=== PATIENT | male | born 1960 | race Caucasian/White ===

== ENCOUNTER 2019-06-05 13:29 | Emergency (ER) | payer OTHER ==
[~2019-06-05] VITALS: Ht 175.3 cm; Wt 108.9 kg
[~2019-06-05 13:29] MED LIST: ASPIRIN81 MG PO; DOXAZOSIN MESYLA2 MG PO; LOZOL 2.5MG2.5 MG PO; METFORMIN HCL500 MG; NEXIUM40 MG PO; Z DOXEPIN HCL; Z.0.DIOVAN320 MG; Z.0.TOPROL XL100 MG PO; [UNRECOGNIZED DRUG - OTHER]
--- OUTSIDE RECORDS SUMMARY | 2019-06-05 13:32 | XMS REPORT | Continuity of Care Document ---
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 Cardio Study Active Diagnosis 06/17/2014 [facility] LBBB (left bundle branch block) Active Diagnosis 01/20/2019 [facility] HTN (hypertension), benign Active Diagnosis 01/20/2019 [facility] Abnormal electrocardiogram Active Diagnosis 01/20/2019 [facility] Other secondary hypertension, benign Active Diagnosis 01/20/2019 [facility] Shortness of breath Active Diagnosis 01/09/2016 [facility] Medications Medication Details Route Status Patient Instructions Ordering Provider Order Date Source Pravachol 2 tablets Orally Active 10 MG Orally Once a day [facility] Iron Unknown Orally Active 25 MG Orally [facility] Vitamin D2 Unknown Orally Active 400 UNIT Orally [facility] Nexium as directed Orally Active 40 MG Orally once a day [facility] Asprin 1 daily NA Active 81 once a day [facility] Metoprolol Tartrate 1 tablet Orally Active 50 MG Orally twice a day [facility] Indapamide 1 tablet every morning Orally Active 2.5 MG Orally Once a day [facility] B complex 1 tab Oral Active Oral [facility] Diovan 1 tablet Orally Active 320 MG Orally Once a day [facility] Nisoldipine ER 1 tablet Orally Active 8.5 MG Orally Once a day [facility] Multivitamin not defined Orally Active Orally [facility] Vitamin D3 2 tablets Orally Active 400 UNIT Orally Once a day [facility] Diovan 1/2 tablet Orally Active 320 MG Orally Once a day [facility] Asprin 1 daily NA Active 81 once a day [facility] B complex 1 tab Oral Active Oral [facility] Indapamide 1/2 tablet every morning Orally Active 1.25 MG Orally Once a day [facility] Vitamin D2 not defined Orally Active 400 UNIT Orally [facility] Diovan 1/2 tablet Orally Active 320 MG Orally Once a day [facility] Indapamide 1/2 tablet every morning Orally Active 2.5 MG Orally Once a day [facility] Allergies, Adverse Reactions, Alerts Substance Category Reaction Severity Reaction type Status Date Reported Comments Source N.K.D.A. Adverse Reaction Info Not Available Adverse Reaction Active 06/08/2014 [facility] Norvasc Adverse Reaction Info Not Available Adverse Reaction Active 01/18/2019 [facility] Immunizations No Data Provided for This Section Results No Data Provided for This Section Pathology Reports No Data Provided for This Section Diagnostic Reports No Data Provided for This Section Consultation Notes No Data Provided for This Section Discharge Summaries No Data Provided for This Section History and Physicals No Data Provided for This Section Vital Signs Vital Sign Value Date Comments Source Weight 252 01/18/2019 [facility] Heart Rate 80 01/18/2019 [facility] Diastolic (mm Hg) 86 01/18/2019 [facility] Systolic (mm Hg) 132 01/18/2019 [facility] Weight 260 01/12/2019 [facility] Heart Rate 54 01/12/2019 [facility] Diastolic (mm Hg) 80 01/12/2019 [facility] Systolic (mm Hg) 140 01/12/2019 [facility] Weight 223 01/04/2016 [facility] Heart Rate 60 01/04/2016 [facility] Diastolic (mm Hg) 70 01/04/2016 [facility] Systolic (mm Hg) 130 01/04/2016 [facility] Weight 219 06/20/2015 [facility] Heart Rate 52 06/20/2015 [facility] Diastolic (mm Hg) 82 06/20/2015 [facility] Systolic (mm Hg) 144 06/20/2015 [facility] Weight 276 06/08/2014 [facility] Heart Rate 58 06/08/2014 [facility] Diastolic (mm Hg) 90 06/08/2014 [facility] Systolic (mm Hg) 138 06/08/2014 [facility] Weight 267 05/24/2014 [facility] Heart Rate 70 05/24/2014 [facility] Diastolic (mm Hg) 64 05/24/2014 [facility] Systolic (mm Hg) 122 05/24/2014 [facility] Weight 290 03/30/2014 [facility] Heart Rate 48 03/30/2014 [facility] Diastolic (mm Hg) 62 03/30/2014 [facility] Systolic (mm Hg) 122 03/30/2014 [facility] Encounters Location Location Details Encounter Type Encounter Number Reason For Visit Attending Provider ADM Date DC Date Status Source [facility] ROUT[facility] CHECK UP [id number] 03/30/2014 03/30/2014 [facility] ROUTINE CHECK UP [id number] 03/30/2014 03/30/2014 [facility] ROUTINE CHECK UP [id number] 03/30/2014 03/30/2014 [facility] ROUTINE CHECK UP [id number] 03/30/2014 03/30/2014 [facility] ROUTINE CHECK UP [id number] 03/30/2014 03/30/2014 [facility] ROUTINE CHECK UP [id number] 03/30/2014 03/30/2014 [facility] ROUTINE CHECK UP [id number] 03/30/2014 03/30/2014 [facility] ROUTINE CHECK UP [id number] 03/30/2014 03/30/2014 [facility] ECHO [id number] 05/19/2014 05/19/2014 [facility] E[facility] [id number] 05/19/2014 05/19/2014 [facility] E[facility] [id number] 05/19/2014 05/19/2014 [facility] ECHO [id number] 05/19/2014 05/19/2014 [facility] ECHO [id number] 05/19/2014 05/19/2014 [facility] ECHO [id number] 05/19/2014 05/19/2014 [facility] ECHO [id number] 05/19/2014 05/19/2014 [facility] f/u ECHO [id number] 05/24/2014 05/24/2014 [facility] f/u ECHO [id number] 05/24/2014 05/24/2014 [facility] f/u ECHO [id number] 05/24/2014 05/24/2014 [facility] [place] [facility] f/u ECHO [id number] 05/24/2014 05/24/2014 [facility] f/u ECHO [id number] 05/24/2014 05/24/2014 [facility] [place] [facility] f/u ECHO [id number] 05/24/2014 05/24/2014 [facility] [facility] f/u ECHO [id number] 05/24/2014 05/24/2014 [facility] BOW[facility] GENE NST [id number] 06/02/2014 06/02/2014 [facility] [place] [facility] GENE NST [id number] 06/02/2014 06/02/2014 [facility] GENE NST [id number] 06/02/2014 06/02/2014 [facility] [place] [facility] GENE NST [id number] 06/02/2014 06/02/2014 [facility] GENE NST [id number] 06/02/2014 06/02/2014 [facility] GENE NST [id number] 06/02/2014 06/02/2014 [facility] [place] [facility] GENE NST [id number] 06/02/2014 06/02/2014 [facility] [place] [facility] F/U GENE NST [id number] 06/08/2014 06/08/2014 [facility] [place] [facility] F/U GENE NST [id number] 06/08/2014 06/08/2014 [facility] [place] [facility] F/U GENE NST [id number] 06/08/2014 06/08/2014 [facility] [place] [facility] F/U GENE NST [id number] 06/08/2014 06/08/2014 [facility] [place] [facility] F/U GENE NST [id number] 06/08/2014 06/08/2014 [facility] [place] [facility] F/U GENE NST [id number] 06/08/2014 06/08/2014 [facility] F/U GENE NST [id number] 06/08/2014 06/08/2014 [facility] F.U [id number] 08/31/2014 08/31/2014 [facility] F.U [id number] 08/31/2014 08/31/2014 [facility] [place] [facility] F.U [id number] 08/31/2014 08/31/2014 [facility] B[facility] NST [id number] 12/13/2014 12/13/2014 [facility] NST [id number] 12/13/2014 12/13/2014 [facility] BOWERS NST [id number] 12/13/2014 12/13/2014 [facility] [facility] ECHO [id number] 12/13/2014 12/13/2014 [facility] ECHO [id number] 12/13/2014 12/13/2014 [facility] ECHO [id number] 12/13/2014 12/13/2014 [facility] F.U TESTING [id number] 12/15/2014 12/15/2014 [facility] PA F.U TESTING [id number] 12/15/2014 12/15/2014 [facility] BOW[facility] F.U TESTING [id number] 12/15/2014 12/15/2014 [facility] [place] [facility] PA 6 MO F.U [id number] 06/20/2015 06/20/2015 [facility] [place] BOWERS 6 MO F.U [id number] 06/20/2015 06/20/2015 [facility] [place] BOWERS 6 MO F.U [id number] 06/20/2015 06/20/2015 [facility] [facility] ECHO [id number] 12/15/2015 12/15/2015 [facility] ECHO [id number] 12/15/2015 12/15/2015 [facility] BOW[facility] F/U TESTING [id number] 01/04/2016 01/04/2016 [facility] Procedures No Data Provided for This Section Assessment and Plan No Data Provided for This Section Plan of Care No Data Provided for This Section Social History Social History Date Source Social History ElementQualifiersDate Reported Diet: no. Are you on a special diet? No January 04, 2016 Caffeine: yes. Do you drink caffeine? Yes, How much a day? couple of times a week, What type? Tea January 04, 2016 Exercise: yes. Do you exercise? Yes, What type of exercise? Walking, Biking January 04, 2016 Smoking: . Are you a: Never smoker January 04, 2016 Alcohol: socially. Do you drink alcohol? Yes, How often? Socially January 04, 2016 01/04/2016 [facility] Family History Value Date Source QualifierDescriptionCommentDate Reported Other: hypertension Jun 08, 2014 Father alive high blood pressure, stroke Jun 08, 2014 06/17/2014 [facility] QualifierDescriptionCommentDate Reported Other: hypertension Jun 08, 2014 Father alive high blood pressure, stroke Jun 08, 2014 06/17/2014 [facility] QualifierDescriptionCommentDate Reported Other: hypertension Jun 08, 2014 Father alive high blood pressure, stroke Jun 08, 2014 06/17/2014 [facility] QualifierDescriptionCommentDate Reported Other: hypertension Jun 08, 2014 Father alive high blood pressure, stroke Jun 08, 2014 06/17/2014 [facility] Advance Directives No Data Provided for This Section Functional Status No Data Provided for This Section
--- OUTSIDE RECORDS SUMMARY | 2019-06-05 13:33 | XMS REPORT ---
Author Author [facility] Address Unknown Phone Unavailable Care Team Providers Care Retort Feeder Ground Bone Name Role Phone Unavailable Unavailable Payers Payer Name Policy Type Policy Number Effective Date Expiration Date Problems This patient has no known problems. Allergies, Adverse Reactions, Alerts Allergy Name Allergy Type Status Severity Reaction(s) Onset Date Inactive Date Treating Clinician Comments No Known Allergies DA Active U 2019-01-21 00:00:00 Medications This patient has no known medications. Results Test Description Test Time Test Comments Text Results Atomic Results Result Comments CBC W/AUTO DIFF 2019-01-21 11:12:00 WHITE BLOOD CELL (test code=WBC) 5.4 K/mm3 3.5-11.0 RED BLOOD CELL (test code=RBC) 6.20 M/mm3 4.70-6.10 HEMOGLOBIN (test code=HGB) 12.9 G/DL 12.3-15.9 HEMATOCRIT (test code=HCT) 40.1 % 35.8-46.7 MEAN CELL VOLUME (test code=MCV) 64.7 Fl 86.3-98.9 MEAN CELL HGB (test code=MCH) 20.8 pg 28.9-34.4 MEAN CELL HGB CONCETRATION (test code=MCHC) 32.2 G/DL 32.1-34.5 RED CELL DISTRIBUTION WIDTH (test code=RDW) 18.7 SD 11.5-14.5 PLATELET COUNT (test code=PLT) 215.0 K/mm3 150-450 MEAN PLATELET VOLUME (test code=MPV) 10.90 fL 7.0-9.6 NEUTROPHIL % (test code=NT%) 67.1 % 40-76 LYMPHOCYTE % (test code=LY%) 18.2 % 20.5-51.1 MONOCYTE % (test code=MO%) 10.1 % 1.7-9.3 EOSINOPHIL % (test code=EO%) 4.0 % 0.0-6.0 BASOPHIL % (test code=BA%) 0.6 % 0.0-2.0 NEUTROPHIL # (test code=NT#) 3.65 K/mm3 1.8-7.6 LYMPHOCYTE # (test code=LY#) 1.0 K/mm3 0.6-3.0 MONOCYTE # (test code=MO#) 0.6 K/mm3 0.2-1.5 EOSINOPHIL # (test code=EO#) 0.2 K/mm3 0.0-0.4 BASOPHIL # (test code=BA#) 0.0 K/mm3 0.0-0.2 MANUAL DIFF REQUIRED (test code=MDIFF) NO DIFF/SCN CRITERIA BASIC METABOLIC [id number] 11:04:00* Test Item Value Reference Range Comments SODIUM (test code=NA) 140 mmol/L 134-147 POTASSIUM (test code=K) 4.5 mmol/L 3.4-5.0 CHLORIDE (test code=CL) 105 mmol/L 100-108 CARBON DIOXIDE (test code=CO2) 32 mmol/L 21-32 ANION GAP (test code=GAP) 3.0 GAP calc 4.0-15.0 GLUCOSE (test code=GLU) 102 MG/DL 70-110 BLOOD UREA NITROGEN (test code=BUN) 22 MG/DL 7-18 GLOMERULAR FILTRATION RATE (test code=GFR) >=60 max estimate estGFR >60 CREATININE (test code=CREAT) 1.0 MG/DL 0.8-1.3 CALCIUM (test code=CA) 8.9 MG/DL 8.5-10.1 CBC W/AUTO [id number] 10:51:00* Test Item Value Reference Range Comments WHITE BLOOD CELL (test code=WBC) 5.4 K/mm3 3.5-11.0 RED BLOOD CELL (test code=RBC) 6.20 M/mm3 4.70-6.10 HEMOGLOBIN (test code=HGB) 12.9 G/DL 12.3-15.9 HEMATOCRIT (test code=HCT) 40.1 % 35.8-46.7 MEAN CELL VOLUME (test code=MCV) 64.7 Fl 86.3-98.9 MEAN CELL HGB (test code=MCH) 20.8 pg 28.9-34.4 MEAN CELL HGB CONCETRATION (test code=MCHC) 32.2 G/DL 32.1-34.5 RED CELL DISTRIBUTION WIDTH (test code=RDW) 18.7 SD 11.5-14.5 PLATELET COUNT (test code=PLT) 215.0 K/mm3 150-450 MEAN PLATELET VOLUME (test code=MPV) 10.90 fL 7.0-9.6 NEUTROPHIL % (test code=NT%) % 40-76 LYMPHOCYTE % (test code=LY%) % 20.5-51.1 MONOCYTE % (test code=MO%) % 1.7-9.3 EOSINOPHIL % (test code=EO%) % 0.0-6.0 BASOPHIL % (test code=BA%) % 0.0-2.0 NEUTROPHIL # (test code=NT#) K/mm3 1.8-7.6 LYMPHOCYTE # (test code=LY#) K/mm3 0.6-3.0 MONOCYTE # (test code=MO#) K/mm3 0.2-1.5 EOSINOPHIL # (test code=EO#) K/mm3 0.0-0.4 BASOPHIL # (test code=BA#) K/mm3 0.0-0.2 MANUAL DIFF REQUIRED (test code=MDIFF) DIFF/SCN CRITERIA
--- OUTSIDE RECORDS SUMMARY | 2019-06-05 13:33 | XMS REPORT ---
Author Author Zahida Jarquin Organization [employer] Address Unknown Phone Unavailable Care Team Providers Care Ux Consultant Name Role Phone Zahida Jarquin CP Unavailable Encounters Encounter Location Date [facility] Jun 02, 2014 F/U [facility] Jun 08, 2014 ROUTINE CHECK UP [facility] March 30, 2014 ECHO [facility] May 19, 2014 f/u ECHO [facility] May 24, 2014 Problems Problem Type Condition ICD-9 Code Onset Dates Condition Status Assessment Other secondary hypertension, benign 405.19 Active Assessment Other acute and subacute form of ischemic heart disease 411.89 Active Problem Essential hypertension, benign 401.1 Active Assessment Abnormal EKG 794.31 Active Problem Diabetes mellitus without mention of complication, type II or unspecified type, not stated as uncontrolled 250.00 Active Assessment Other malaise and fatigue 780.79 Active Assessment Sinoatrial node dysfunction 427.81 Active Assessment Shortness of breath 786.05 Active Assessment Diabetes mellitus without mention of complication, type II or unspecified type, not stated as uncontrolled 250.00 Active Social History Social History Element Qualifiers Date Reported Diet: no. Are you on a special diet? No Jun 08, 2014 Caffeine: yes. Do you drink caffeine? Yes, How much a day? couple of times a week, What type? Tea Jun 08, 2014 Exercise: yes. Do you exercise? Yes, What type of exercise? Walking, Biking Jun 08, 2014 Smoking: . Are you a: Never smoker Jun 08, 2014 Alcohol: socially. Do you drink alcohol? Yes, How often? Socially Jun 08, 2014 Family history Qualifier Description Comment Date Reported Other: hypertension Jun 08, 2014 Father alive high blood pressure, stroke Jun 08, 2014 Summary Purpose [employer] Submission
--- OUTSIDE RECORDS SUMMARY | 2019-06-05 13:33 | XMS REPORT ---
Author Author Zahida Jarquin Organization [employer] Address Unknown Phone Unavailable Care Team Providers Care Inside Contractor Sales Name Role Phone Zahida Jarquin CP Unavailable Allergies, Adverse Reactions, Alerts Substance Reaction Event Type Norvasc Info Not Available Drug Allergy Problems Problem Type Condition Code Onset Dates Condition Status Problem Diabetes mellitus without mention of complication, type II or unspecified type, not stated as uncontrolled 250.00 Active Problem Essential hypertension, benign 401.1 Active Problem LBBB (left bundle branch block) I44.7 Active Assessment Other secondary hypertension, benign I15.9 Active Assessment LBBB (left bundle branch block) I44.7 Active Assessment Abnormal electrocardiogram R94.31 Active Medications Medication Code System Code Instructions Start Date End Date Status Dosage Vitamin D3 [facility] 06823211889 400 UNIT Orally Once a day Active 2 tablets Vitamin D2 [facility] 10975760640 400 UNIT Orally Active not defined Asprin NDC 0 81 once a day Active 1 daily B complex NDC 0 Oral Active 1 tab Indapamide [facility] 51705265802 1.25 MG Orally Once a day Active 1/2 tablet every morning Nisoldipine ER [place] 57893640401 8.5 MG Orally Once a day Active 1 tablet Multivitamin [facility] [address] Orally Active not defined Diovan [facility] [address]-02 320 MG Orally Once a day Active 1/2 tablet Vital Signs Date/Time: January 12, 2019 BMI 50.77 Index Weight 260 lbs Height 5'9 in Cardiac Monitoring Heart Rate 54 /min Blood Pressure Diastolic 80 mm Hg Blood Pressure Systolic 140 mm Hg Results No Known Results Summary Purpose [employer] Submission
--- OUTSIDE RECORDS SUMMARY | 2019-06-05 13:33 | XMS REPORT ---
Author Author Zahida Jarquin Organization [employer] Address Unknown Phone Unavailable Care Team Providers Care Control Room Supervisor Name Role Phone Zahida Jarquin CP Unavailable [...] Assessment Other secondary hypertension, benign 405.19 Active Problem Essential hypertension, benign 401.1 Active [...]
--- OUTSIDE RECORDS SUMMARY | 2019-06-05 13:33 | XMS REPORT ---
Author Author Zahida Jarquin Organization [employer] Address Unknown Phone Unavailable Care Team Providers Care Lead Customer Service Representative Name Role Phone Zahida Jarquin CP Unavailable Allergies, Adverse Reactions, Alerts Substance Reaction Event Type Norvasc Info Not Available Drug Allergy Problems Problem Type Condition Code Onset Dates Condition Status Assessment LBBB (left bundle branch block) I44.7 Active Assessment HTN (hypertension), benign I10 Active Problem LBBB (left bundle branch block) I44.7 Active Problem Diabetes mellitus without mention of complication, type II or unspecified type, not stated as uncontrolled 250.00 Active Problem HTN (hypertension), benign I10 Active Assessment Abnormal electrocardiogram R94.31 Active Assessment Other secondary hypertension, benign I15.9 Active Problem Essential hypertension, benign 401.1 Active Medications Medication Code System Code Instructions Start Date End Date Status Dosage B complex NDC 0 Oral Active 1 tab Vitamin D3 NDC 45984885906 400 UNIT Orally Once a day Active 2 tablets Diovan NDC 23017299061 320 MG Orally Once a day Active 1/2 [place] [address] Orally Active not defined Nisoldipine ER NDC 03972201249 8.5 MG Orally Once a day Active 1 tablet Indapamide NDC 72501116010 1.25 MG Orally Once a day Active 1/2 tablet every morning Asprin NDC 0 81 once a day Active 1 daily Vital Signs Date/Time: January 18, 2019 BMI 49.21 Index Weight 252 lbs Height 5'9 in Cardiac Monitoring Heart Rate 80 /min Blood Pressure Diastolic 86 mm Hg Blood Pressure Systolic 132 mm Hg Results No Known Results Summary Purpose [employer] Submission
--- OUTSIDE RECORDS SUMMARY | 2019-06-05 13:33 | XMS REPORT ---
Author Author Zahida Jarquin Organization [employer] Address Unknown Phone Unavailable Care Team Providers Care Neurology Technologist Name Role Phone Zahida Jarquin CP Unavailable Encounters Encounter Location Date GENE [facility] Jun 02, 2014 F/U [facility] [place] [facility] Jun 08, 2014 F.U [facility] Aug 31, 2014 NST [facility] December 13, 2014 ROUTINE CHECK UP [facility] March 30, 2014 ECHO [facility] December 15, 2015 ECHO [facility] May 19, 2014 f/u ECHO [facility] May 24, 2014 6 MO F.U [facility] Jun 20, 2015 ECHO [facility] December 13, 2014 F.U TESTING [facility] December 15, 2014 Problems Problem Type Condition ICD-9 Code Onset Dates Condition Status Problem Essential hypertension, benign 401.1 Active Assessment Shortness of breath R06.02 Active Problem Diabetes mellitus without mention of complication, type II or unspecified type, not stated as uncontrolled 250.00 Active Assessment Abnormal electrocardiogram R94.31 Active Assessment Other secondary hypertension, benign I15.9 Active Social History Social History Element Qualifiers Date Reported Diet: no. Are you on a special diet? No Jun 20, 2015 Caffeine: yes. Do you drink caffeine? Yes, How much a day? couple of times a week, What type? Tea Jun 20, 2015 Exercise: yes. Do you exercise? Yes, What type of exercise? Walking, Biking Jun 20, 2015 Smoking: . Are you a: Never smoker Jun 20, 2015 Alcohol: socially. Do you drink alcohol? Yes, How often? Socially Jun 20, 2015 Summary Purpose [employer] Submission
--- OUTSIDE RECORDS SUMMARY | 2019-06-05 13:33 | XMS REPORT ---
Author Author Zahida Jarquin Organization [employer] Address Unknown Phone Unavailable Care Team Providers Care Wholesaler Name Role Phone Zahida Jarquin CP Unavailable Allergies, Adverse Reactions, Alerts Substance Reaction Event Type N.K.D.A. Info Not Available Non Drug Allergy Encounters Encounter Location Date [facility] Jun 02, 2014 F/U [facility] Jun 08, 2014 ROUTINE CHECK [facility] March 30, 2014 [facility] May 19, 2014 f/u [facility] [...] type, not stated as uncontrolled 250.00 Active Medications Medication Code System Code Instructions Start Date End Date Status Dosage Metoprolol Tartrate [facility] [address]-90 50 MG Orally twice a day Active 1 tablet Diovan [facility] [address]-07 320 MG Orally Once a day Active 1 tablet Asprin Unknown 0 81 once a day Active 1 daily Vitamin D2 [facility] [address] 400 UNIT Orally Active Unknown Indapamide [facility] [address]-66 2.5 MG Orally Once a day Active 1 tablet every morning B complex Unknown 0 Oral Active 1 tab Pravachol [facility] [address]-34 10 MG Orally Once a day Active 2 tablets Nexium [facility] [address]-35 40 MG Orally once a day Active as directed Iron [facility] [address]-73 25 MG Orally Active Unknown Social History Social History Element Qualifiers Date [...] high blood pressure, stroke Jun 08, 2014 Vital Signs Date/Time: May 24, 2014 Weight 267 lbs Cardiac Monitoring Heart Rate 70 /min Blood Pressure Diastolic 64 mm Hg Blood Pressure Systolic 122 mm Hg Summary Purpose [employer] Submission
--- OUTSIDE RECORDS SUMMARY | 2019-06-05 13:33 | XMS REPORT ---
Author Author Zahida Jarquin Organization [employer] Address Unknown Phone Unavailable Care Team Providers Care City Assessor Name Role Phone Zahida Jarquin CP Unavailable Allergies, Adverse Reactions, Alerts Substance Reaction Event Type N.K.D.A. Info Not Available Non Drug Allergy Encounters Encounter Location Date ROUTINE CHECK [facility] March 30, 2014 Problems Problem Type Condition ICD-9 Code Onset Dates Condition Status Assessment Sinoatrial node dysfunction 427.81 Active Problem Essential hypertension, benign 401.1 Active Assessment Abnormal EKG 794.31 Active Problem Diabetes mellitus without mention of complication, type II or unspecified type, not stated as uncontrolled 250.00 Active Assessment Essential hypertension, benign 401.1 Active Assessment Other malaise and fatigue 780.79 Active Assessment Shortness of breath 786.05 Active Assessment Diabetes mellitus without mention of complication, type II or unspecified type, not stated as uncontrolled 250.00 Active Medications Medication Code System Code Instructions Start Date End Date Status Dosage Pravachol [facility] [address]-93 10 MG Orally Once a day Active 2 tablets Iron [facility] [address]-08 25 MG Orally Active Unknown Vitamin D2 [facility] [address]871 400 UNIT Orally Active Unknown Nexium [facility] [address]-10 40 MG Orally once a day Active as directed Asprin Unknown 0 81 once a day Active 1 daily Metoprolol Tartrate [facility] [address]-67 50 MG Orally twice a day Active 1 tablet Indapamide [facility] [address]-64 2.5 MG Orally Once a day Active 1 tablet every morning B complex Unknown 0 Oral Active 1 tab Diovan [facility] [address]-92 320 MG Orally Once a day Active 1 tablet Social History Social History Element Qualifiers Date Reported Diet: no. Are you on a special diet? No March 30, 2014 Caffeine: yes. Do you drink caffeine? Yes, How much a day? 1 cup, What type? Tea March 30, 2014 Exercise: yes. Do you exercise? Yes, How often? Daily, What type of exercise? Walking March 30, 2014 Smoking: . Non smoker March 30, 2014 Alcohol: socially. Do you drink alcohol? Yes, How often? Socially March 30, 2014 Vital Signs Date/Time: March 30, 2014 Weight 290 lbs Cardiac Monitoring Heart Rate 48 /min Blood Pressure Diastolic 62 mm Hg Blood Pressure Systolic 122 mm Hg Summary Purpose [employer] Submission
--- OUTSIDE RECORDS SUMMARY | 2019-06-05 13:33 | XMS REPORT ---
Author Author Zahida Jarquin Organization [employer] Address Unknown Phone Unavailable Care Team Providers Care Strap Setter Name Role Phone Zahida Jarquin CP Unavailable [...] ICD-9 Code Onset Dates Condition Status Assessment Abn. Cardio Study 794.39 Active Assessment Other secondary hypertension, benign 405.19 Active [...] Instructions Start Date End Date Status Dosage Diovan [facility] [address]-56 320 MG Orally Once a day Active 1 tablet Iron [facility] [address]-46 25 MG Orally Active Unknown Metoprolol Tartrate [facility] [address]-96 50 MG Orally twice a day Active 1 tablet Nexium [facility] [address]-09 40 MG Orally once a day Active as directed Asprin Unknown 0 81 once a day Active 1 daily Vitamin D2 [facility] [address] 400 UNIT Orally Active Unknown B complex Unknown 0 Oral Active 1 tab Indapamide [facility] [address]-88 2.5 MG Orally Once a day Active 1 tablet every morning Pravachol [facility] [address]-58 10 MG Orally Once a day Active 2 tablets Social History Social History Element Qualifiers Date [...] stroke Jun 08, 2014 Vital Signs Date/Time: Jun 08, 2014 Weight 276 lbs Cardiac Monitoring Heart Rate 58 /min Blood Pressure Diastolic 90 mm Hg Blood Pressure Systolic 138 mm Hg Summary Purpose [employer] Submission
--- OUTSIDE RECORDS SUMMARY | 2019-06-05 13:33 | XMS REPORT ---
Author Author Zahida Jarquin Organization [employer] Address Unknown Phone Unavailable Care Team Providers Care Investments Manager Name Role Phone Zahida Jarquin CP Unavailable Allergies, Adverse Reactions, Alerts Substance Reaction Event Type Norvasc Info Not Available Drug Allergy Encounters Encounter Location Date [facility] Jun 02, 2014 F/U [facility] [place] [facility] Jun 08, 2014 [facility] Aug 31, 2014 [facility] December 13, 2014 ROUTINE CHECK UP [facility] March 30, 2014 [facility] May 19, 2014 f/u [facility] May 24, 2014 6 MO F.U [facility] Jun 20, 2015 [facility] December 13, 2014 F.U [facility] December 15, 2014 Problems Problem Type Condition ICD-9 Code Onset Dates Condition Status Problem Essential hypertension, benign 401.1 Active Assessment Shortness of breath 786.05 Active Problem Diabetes mellitus without mention of complication, type II or unspecified type, not stated as uncontrolled 250.00 Active Assessment Abnormal EKG 794.31 Active Assessment Other secondary hypertension, benign 405.19 Active Medications Medication Code System Code Instructions Start Date End Date Status [facility]osage [facility] [address] 400 UNIT Orally Active Unknown Diovan [facility] [address]-19 320 MG Orally Once a day Active 1 tablet [facility]apamide [facility] [address]-24 2.5 MG Orally Once a day Active 1/2 tablet every morning B complex Unknown 0 Oral Active 1 tab Asprin Unknown 0 81 once a day Active 1 daily Multivitamin [facility] [address] Orally Active Unknown Social History Social History [...] Yes, How often? Socially Jun 20, 2015 Vital Signs Date/Time: Jun 20, 2015 Weight 219 lbs Cardiac Monitoring Heart Rate 52 /min Blood Pressure Diastolic 82 mm Hg Blood Pressure Systolic 144 mm Hg Summary Purpose [employer] Submission
--- OUTSIDE RECORDS SUMMARY | 2019-06-05 13:33 | XMS REPORT ---
Author Author Zahida Jarquin Organization [employer] Address Unknown Phone Unavailable Care Team Providers Care Disease Case Manager Name Role Phone Zahida Jarquin CP Unavailable Allergies, Adverse Reactions, Alerts Substance Reaction Event Type Norvasc Info Not Available Drug Allergy Encounters Encounter Location Date [facility] Jun 02, 2014 F/U [facility] Jun 08, 2014 [facility] Aug 31, 2014 [facility] December 13, 2014 ROUTINE CHECK [facility] March 30, 2014 [facility] December 15, 2015 [facility] May 19, 2014 F/U [facility] January 04, 2016 f/u [facility] May 24, [...] Assessment Other secondary hypertension, benign I15.9 Active Medications Medication Code System Code Instructions Start Date End Date Status Dosage Multivitamin [facility] [address] Orally Active Unknown Asprin Unknown 0 81 once a day Active 1 daily B complex Unknown 0 Oral Active 1 tab Vitamin D2 [facility] 99695-[address]41 400 UNIT Orally Active Unknown Indapamide [facility] [address]-11 2.5 MG Orally Once a day Active 1/2 tablet every morning Diovan [facility] [address]-53 320 MG Orally Once a day Active [...] Yes, How often? Socially January 04, 2016 Vital Signs Date/Time: January 04, 2016 Weight 223 lbs Cardiac Monitoring Heart Rate 60 /min Blood Pressure Diastolic 70 mm Hg Blood Pressure Systolic 130 mm Hg Summary Purpose [employer] Submission
--- OUTSIDE RECORDS SUMMARY | 2019-06-05 13:33 | XMS REPORT ---
Author Author Zahida Jarquin Organization [employer] Address Unknown Phone Unavailable Care Team Providers Care Facility Worker Name Role Phone Zahida Jarquin CP Unavailable Allergies No Known Allergies Problems Problem Type Condition Code Onset Dates Condition Status Assessment LBBB (left bundle branch block) I44.7 Active Problem LBBB (left bundle branch block) I44.7 Active Problem Diabetes mellitus without mention of complication, type II or unspecified type, not stated as uncontrolled 250.00 Active Problem HTN (hypertension), benign I10 Active Assessment Abnormal electrocardiogram R94.31 Active Assessment Other secondary hypertension, benign I15.9 Active Problem Essential hypertension, benign 401.1 Active Medications Medication Code System Code Instructions Start Date End Date Status Dosage Nisoldipine ER [facility] 48721428363 8.5 MG Orally Once a day Active 1 tablet Multivitamin [facility] [address] Orally Active not defined Vitamin D3 ND 74482715552 400 UNIT Orally Once a day Active 2 tablets Diovan ND 96256240467 320 MG Orally Once a day Active 1/2 tablet Asprin NDC 0 81 once a day Active 1 daily B complex NDC 0 Oral Active 1 tab Indapamide ND 77179813335 1.25 MG Orally Once a day Active 1/2 tablet every morning Results No Known Results Summary Purpose [employer] Submission
--- NOTE | 2019-06-05 13:49 | NUR ---
RADIOLOGY AT BEDSIDE FOR XRAYS.
[2019-06-05] MEDS ORDERED: TRAMADOL HCL 50 MG TAB PO NR (14:30)
--- NOTE | 2019-06-05 14:33 | Diagnostic Imaging Report ---
Exam: Right ankle radiographs-3 views History: Status post fall, query fracture. Comparison: None. Findings: There is a comminuted, minimally displaced fracture of the distal fibula with intra-articular extension. There is soft tissue edema in the lateral ankle. Ankle mortise is preserved. The distal tibia is unremarkable. There is Achilles enthesopathy. Impression: Comminuted, minimally displaced fracture of the distal fibula. Signed by: Dr. Katia Coughlin MD on 06/05/2019 2:30 PM
== END 2019-06-05 14:57 | disposition home or self-care (01) ==
LOC: ER 13:29
DX: S82.424A Nondisplaced transverse fracture of shaft of right fibula, initial encounter for closed fracture (principal); X50.1XXA Overexertion from prolonged static or awkward postures, initial encounter; V58.4XXA Person boarding or alighting a pick-up truck or van injured in noncollision transport accident, initial encounter; Y92.410 Unspecified street and highway as the place of occurrence of the external cause; I10 Essential (primary) hypertension
CPT/HCPCS: 99283